=== PATIENT | female | born 1970 | race Caucasian/White ===

== ENCOUNTER 2021-03-13 13:01 | Emergency (ER) | payer OTHER ==
[~2021-03-13 13:01] MED LIST: BACTRIM DS TAB1 EACH PO; CLEOCIN300 MG PO
[2021-03-13 15:36] LABS: INFLUENZA A NAA NEGATIVE (NEGATIVE)
[2021-03-13 15:38] LABS: CORONAVIRUS 2019 SARS-COV-2 POSITIVE (NEGATIVE)
== END 2021-03-13 16:50 | disposition home or self-care (01) ==
LOC: FER 13:01
PROVIDERS: Emergency Medicine
DX: U07.1 COVID-19 (principal); F17.210 Nicotine dependence, cigarettes, uncomplicated; Z88.0 Allergy status to penicillin; Z88.1 Allergy status to other antibiotic agents; Z88.5 Allergy status to narcotic agent
CPT/HCPCS: 71045; U0002